=== PATIENT | female | born 1975 | race Caucasian/White ===

== ENCOUNTER → 2018-11-17 | Outpatient (REF) | payer OTHER | LOC: M LAB REF 14:44 → M LAB LCGH 14:44 | PROVIDERS: ATTEND Nurse Practitioner Adult Health | DX: Z30.432 Encounter for removal of intrauterine contraceptive device (principal) ==

== ENCOUNTER → 2025-03-22 | Outpatient (CLI) | payer OTHER | LOC: M ONCR 11:08 | PROVIDERS: ATTEND General Practice | DX: C50.311 Malignant neoplasm of lower-inner quadrant of right female breast (principal); Z17.0 Estrogen receptor positive status [ER+]; Z17.21 Progesterone receptor positive status; Z17.32 Human epidermal growth factor receptor 2 negative status; Z98.890 Other specified postprocedural states ==

== ENCOUNTER 2025-04-05 10:59 | Outpatient (RCR) | payer OTHER | END 2025-04-12 | LOC: M ONCR 10:59 | PROVIDERS: ATTEND General Practice | DX: Z51.0 Encounter for antineoplastic radiation therapy (principal); C50.311 Malignant neoplasm of lower-inner quadrant of right female breast ==

== ENCOUNTER → 2025-05-13 | Outpatient (RCR) | payer OTHER | LOC: M ONCR 04-18 11:24 | PROVIDERS: ATTEND General Practice | DX: Z51.0 Encounter for antineoplastic radiation therapy (principal); C50.311 Malignant neoplasm of lower-inner quadrant of right female breast ==